=== PATIENT | female | born 1985 ===

== ENCOUNTER 2020-04-28 13:22 | Outpatient (REF) | payer OTHER, SELFPAY | END 2020-04-28 13:23 | disposition home or self-care (01) | LOC: HO.HMGCLDS 13:22 | PROVIDERS: PCP Internal Medicine; Visit Provider Internal Medicine | DX: Z20.828 Contact with and (suspected) exposure to other viral communicable diseases (principal) | CPT/HCPCS: 36415; 87635 ==

== ENCOUNTER 2022-03-20 12:23 | Outpatient (REF) | payer OTHER, SELFPAY ==
[2022-03-20 14:13] LABS: MANUAL DIFF FLAG NO
[2022-03-20 14:28] LABS: Alanine Aminotransferase 17 U/L (0-31); Albumin Level 4.1 g/dL (3.5-5.0); Alkaline Phosphatase 66 U/L (39-117); Anion Gap 13 (12-20); Aspartate Amino Transferase 21 U/L (5-31); Bilirubin Total 0.9 mg/dL (0.0-1.0); Blood Urea Nitrogen 13 mg/dL (9-16); Calcium 9.3 mg/dL (8.4-10.2); Carbon Dioxide 26 mmol/L (22-29); Chloride 103 mmol/L (96-108); Cholesterol 182 mg/dL; Estimated Glomerular Filt Rate > 60; Glucose Fasting 92 mg/dL (60-99); HDL Cholesterol 44 mg/dL; LDL Cholesterol Calculated 118 mg/dl; Potassium 4.1 mmol/L (3.3-5.1); Sodium 138 mmol/L (135-145); Total Protein 7.4 g/dL (6.5-8.0); Triglycerides 103 mg/dL
[2022-03-20 14:34] LABS: Basophils Percent Auto 0.5 % (0-2); Eosinophils Absolute Auto 0.2 X10*3/uL (0.0-0.4); Eosinophils Percent Auto 3.6 % (0-4); Hemoglobin 11.7 g/dl (12.0-16.0); Imm Gran Abs Auto 0.02 X10*3/uL (0.00-0.03); Imm Gran Pct Auto 0.3 % (0.0-0.4); Lymphocytes Absolute Auto 2.1 X10*3/uL (1.2-4.9); Lymphocytes Percent Auto 34.2 % (20-40); Mean Corpuscular HGB Conc 32.5 g/dl (31.0-35.0); Mean Corpuscular Hemoglobin 27.6 pg (27.0-33.0); Mean Corpuscular Volume 84.9 fL (80.0-98.0); Mean Platelet Volume 11.4 fL (9.4-12.3); Monocytes Absolute Auto 0.5 X10*3/uL (0.1-1.2); Monocytes Percent Auto 7.5 % (2-11); Neutrophils Absolute Auto 3.3 x10*3/uL (2.0-8.3); Neutrophils Percent Auto 53.9 % (45-73); Platelet Count 271 X10*3/uL (160-400); Red Blood Count 4.24 X10*6/uL (4.20-5.50); Red Cell Distribution Width 13.4 % (11.0-16.0); White Blood Count 6.1 X10*3/uL (4.8-10.8)
[2022-03-20 14:49] LABS: TSH reflex Free T4 0.79 uIU/mL (0.32-4.0)
[2022-03-22 03:31] LABS: ~Hepatitis B Surface Antibody REACTIVE (Nonreactive)
[2022-03-22 21:21] LABS: Rubella IgG Antibody 7.12 Index
[2022-03-24 11:56] LABS: Tetanus Antitoxiod Antibody 1.27 IU/mL
== END 2022-03-20 12:24 | disposition home or self-care (01) ==
LOC: HO.HMGCLDS 12:23
PROVIDERS: PCP Internal Medicine; Visit Provider Internal Medicine
DX: Z00.01 Encounter for general adult medical examination with abnormal findings (principal); E66.3 Overweight; R03.0 Elevated blood-pressure reading, without diagnosis of hypertension; Z28.39 Other underimmunization status
CPT/HCPCS: 36415; 80053; 80061; 84443; 85025; 86706; 86735; 86762; 86765; 86774; 86787

== ENCOUNTER 2022-03-23 10:32 | Outpatient (REF) | payer OTHER, SELFPAY ==
[2022-03-26 16:25] LABS: TS Negative Control Passed; TS Panel A 0; TS Panel B 0; TS Positive Control Passed; TSpotTB Negative (Negative)
== END 2022-03-23 10:33 | disposition home or self-care (01) ==
LOC: HO.HMGCLDS 10:32
PROVIDERS: PCP Internal Medicine; Visit Provider Internal Medicine
DX: Z11.1 Encounter for screening for respiratory tuberculosis (principal); Z28.39 Other underimmunization status
CPT/HCPCS: 36415; 86481

== ENCOUNTER 2024-04-04 13:44 | Outpatient (AMB) | payer OTHER, SELFPAY ==
--- NOTE | 2024-04-04 13:45 | MHC.PC.OV ---
Vital Signs 04/04/24 13:46 Height 5 ft 5 in Weight 179 lb BMI 29.8 BP 164/110 H Blood Pressure Location Rt brachial Position Sitting Pulse 85 Pulse Source Pulse Oximeter Pulse Oximetry (%) 99 Oxygen Delivery Method Room Air Intake Visit Reasons: PE Allergies No Known Allergies [No Known Allergies*] Allergy (Verified 04/04/24 13:46) Medication List - Last Reconciled 04/04/24 by Ashleigh Love MD bupropion HCl XL 150 mg PO QAM sertraline 50 mg PO DAILY Tobacco use date assessed: 04/04/24 Dental Screening Dental Screen Date: 04/04/24 Did you have a dental visit in the last 12 months?: Yes Did you have a dental problem in the last 6 months where you did not have access to dental care?: No Was dental information given to patient?: Patient has dentist HPI PE HPI Details Patient was 39-year-old female came in for physical exam Last time seen was 20:22 Patient had twins in 2020 During she had hypertension and was taking medication, later on her blood pressure become normal of the medication Until recently she noticed that she is having some chest discomfort at times Patient also have anxiety and is seeing psychiatrist and is taking medication EKG done today shows normal sinus rhythm no acute finding Blood pressure is elevated I am starting her on atenolol 25 mg once a day, patient have a monitor at home She will start logging her blood pressure and return in 2 weeks for follow-up appointment Labs are needed as well, she is complaining of feeling tired Her periods are regular, however patient need a referral to OBGYN and mammogram which I have placed for her. BMI is elevated need to lose weight Follow-up 2 weeks [facility] Social History Housing: House Patient Tobacco Use Status: Never used Tobacco e-Cigarette/Vaping Use: Never Used service: No Current occupational status: employed Cognitive needs: No Hearing needs: No Vision needs: No Questionnaire PHQ-9 Over the last 2 weeks, how often have you been bothered by any of the following problems? 1. Little interest or pleasure in doing things: not at all 2. Feeling down, depressed, or hopeless: not at all 3. Trouble falling or staying asleep, or sleeping too much: not at all 4. Feeling tired or having little energy: several days 5. Poor appetite or overeating: not at all 6. Feeling bad about yourself - or that you are a failure or have let yourself or your family down: not at all 7. Trouble concentrating on things, such as reading the newspaper or watching television: not at all 8. Moving or speaking so slowly that other people could have noticed. Or the opposite - being so fidgety or restless that you have been moving around a lot more than usual: not at all 9. Thoughts that you would be better off or of hurting yourself in some way: not at all Total score: 1 Depression Screening Interpretation: Negative Depression Screening Done: Yes 52122 - PHQ-9 Billing: Yes Source: Developed by Drs. Edy Otto, Erin Bryant, Tramaine Seals and colleagues, with an educational peggy from [employer]. Thrive Questionnaire Date Thrive assessed: 04/04/24 I am a: Patient What is your living situation today?: I have a steady place to live Within the past 12 months, did the food you bought not last and you didn't have the money to get more?: Never true Within the past 12 months, did you worry whether your food would run out before you got money to buy more?: Never true Do you have trouble paying for medicines?: No Do you have trouble getting transportation to medical appointments?: No Do you have trouble paying your heating and electricity bill?: No Do you have trouble taking care of your child, family member or friend?: No Do you have trouble with day-to-day activities such as bathing, preparing meals, shopping, managing finances, etc.?: No Are you currently unemployed and looking for a job?: No Are you interested in more education?: Yes Please select the resources that you would like help with: None Currently or been in a relationship where the following occur: I choose not to answer THRIVE Score: 0 AUDIT C Alcohol Use Questionnaire (AUDIT-C) 1. How often do you have a drink containing alcohol?: Monthly or less 2. How many drinks containing alcohol do you have on a typical day when you are drinking?: 1 or 2 3. How often do you have six or more drinks on one occasion?: Never Total Score: 1 Score Reviewed/Action Taken: Yes CADY-7 AMB Questionnaire CADY-7 Date CDAY - 7 assessed: 04/04/24 Feeling nervous, anxious, or on edge: 1 = Several days Not being able to stop or control worryin = Several days Worrying too much about different things: 1 = Several days Trouble relaxin = Several days Being so restless that it is hard to sit still: 1 = Several days Becoming easily annoyed or irritable: 1 = Several days Feeling afraid as if something awful might happen: 0 = Not at all Total CADY-7 score (0-4 normal; 5-9 mild; 10-14 moderate; 15-21 severe): 6 Source: Developed by Drs. Edy Otto, Erin Bryant, Tramaine Seals and colleagues, with an educational peggy from [employer]. Review of Systems Const Denies chills, Denies fever(s) and Denies headache(s) Eyes Denies blurry vision ENT Denies headache(s), Denies nasal discharge, Denies nasal obstruction, Denies odynophagia and Denies sinus pain Card Denies chest pain at rest and Denies chest pain with activity Resp Denies cough and Denies hemoptysis GI Denies diarrhea, Denies odynophagia, Denies vomiting and Denies hematemesis Reports as per HPI Musc Denies abnormal gait Skin/Breast Reports as per HPI Neuro Denies Neuro-related abnormal movements, Denies Abnormal speech present, Denies abnormal gait, Denies headache(s) and Denies Sensory deficit (Neuro) Psych Denies mood swings and Denies paranoia Endo Reports as per HPI Fabian/Lymph Reports as per HPI Aller/Immun Reports as per HPI Physical exam (Primary Care) Vital Signs: Last Vital Signs Pulse 85 04/04/24 13:46 BP 164/110 H 04/04/24 13:46 Pulse Ox 99 04/04/24 13:46 Oxygen Delivery Method Room Air 04/04/24 13:46 BMI result Body Mass Index 29.8 Tobacco/Smoking Status: Tobacco use Status Tobacco use date assessed 04/04/24 04/04/24 13:53 Patient Tobacco Use Status Never used Tobacco 04/04/24 13:53 e-Cigarette/Vaping Use Never Used 04/04/24 13:53 PHQ-9: PHQ-9 Score PHQ-9: Total score 1 04/04/24 13:55 Depression Screening Interpretation: Negative Thrive Assessment: Date of Thrive Assessment Date Thrive assessed 04/04/24 04/04/24 13:55 Currently or been in a relationship where the following occur: I choose not to answer Const General: cooperative, comfortable and no acute distress Orientation/consciousness: patient oriented x3 HENMT Head: Yes normocephalic and Yes atraumatic Eyes General: appearance normal, both eyes and all related structures Pupils: Equal, round and reactive pupils present EOM: EOMs intact bilaterally Neck Neck: Yes supple and No lymphadenopathy Thyroid: Thyroid normal Lymphatic: no lymphadenopathy noted Resp Effort & Inspection: normal respiratory effort and able to speak in complete sentences Auscultation: clear to auscultation bilaterally Cardio Heart sounds: S1 normal heart sound present and S2 normal heart sound present GI Palpation (GI): Soft to palpation and nontender Auscultation: normal bowel sounds General: Yes no CVA tenderness Back/Spine/Pelvis Back: no CVA tenderness Skin General skin exam: elasticity normal and turgor normal Neuro General: patient oriented x3 and gait normal Cranial nerves: Yes Equal, round and reactive pupils present Speech: No Abnormal speech present Sensory Exam: No Sensory deficit (Neuro) Coordination: tandem gait normal and Romberg test negative Extrem General: Yes normal exam except as noted and No edema Office Procedures EKG [id number], Complete Assessment and Plan Assessment & Plan (1) Encounter for general adult medical examination with abnormal findings: Code(s): Z00.01 - Encounter for general adult medical examination with abnormal findings (2) Chest discomfort: Code(s): R07.89 - Other chest pain (3) Elevated blood pressure reading: Code(s): R03.0 - Elevated blood-pressure reading, without diagnosis of hypertension (4) Tired: Code(s): R53.83 - Other fatigue (5) Depression, major, recurrent, mild: Code(s): F33.0 - Major depressive disorder, recurrent, mild (6) Anxiety, generalized: Code(s): F41.1 - Generalized anxiety disorder Plan Patient was 39-year-old female came in for physical exam Last time seen was 20:22 Patient had twins in 2020 During she had hypertension and was taking medication, later on her blood pressure become normal of the medication Until recently she noticed that she is having some chest discomfort at times Patient also have anxiety and is seeing psychiatrist and is taking medication EKG done today shows normal sinus rhythm no acute finding Blood pressure is elevated I am starting her on atenolol 25 mg once a day, patient have a monitor at home She will start logging her blood pressure and return in 2 weeks for follow-up appointment Labs are needed as well, she is complaining of feeling tired Her periods are regular, however patient need a referral to OBGYN and mammogram which I have placed for her. BMI is elevated need to lose weight Follow-up 2 week Orders: Orders Comprehensive [place]. Panel Fast Today F33.0 - Major depressive disorder, recurrent, mild, F41.1 - Generalized anxiety disorder, R03.0 - Elevated blood-pressure reading, without diagnosis of hypertension, R53.83 - Other fatigue, Z00.01 - Encounter for general adult medical examination with abnormal findings Lipid Panel Today F33.0 - Major depressive disorder, recurrent, mild, F41.1 - Generalized anxiety disorder, R03.0 - Elevated blood-pressure reading, without diagnosis of hypertension, R53.83 - Other fatigue, Z00.01 - Encounter for general adult medical examination with abnormal findings Vitamin B12 Today F33.0 - Major depressive disorder, recurrent, mild, F41.1 - Generalized anxiety disorder, R03.0 - Elevated blood-pressure reading, without diagnosis of hypertension, R53.83 - Other fatigue, Z00.01 - Encounter for general adult medical examination with abnormal findings UA CC w/rflx Micro + Cult Today F33.0 - Major depressive disorder, recurrent, mild, F41.1 - Generalized anxiety disorder, R03.0 - Elevated blood-pressure reading, without diagnosis of hypertension, R53.83 - Other fatigue, Z00.01 - Encounter for general adult medical examination with abnormal findings Magnesium Today F33.0 - Major depressive disorder, recurrent, mild, F41.1 - Generalized anxiety disorder, R03.0 - Elevated blood-pressure reading, without diagnosis of hypertension, R53.83 - Other fatigue, Z00.01 - Encounter for general adult medical examination with abnormal findings AMB EKG-In Office Today R07.89 - Other chest pain Complete Blood Count Auto Diff Today F33.0 - Major depressive disorder, recurrent, mild, F41.1 - Generalized anxiety disorder, R03.0 - Elevated blood-pressure reading, without diagnosis of hypertension, R53.83 - Other fatigue, Z00.01 - Encounter for general adult medical examination with abnormal findings Vitamin D 25-OH (D2 and D3) Today F33.0 - Major depressive disorder, recurrent, mild, F41.1 - Generalized anxiety disorder, R03.0 - Elevated blood-pressure reading, without diagnosis of hypertension, R53.83 - Other fatigue, Z00.01 - Encounter for general adult medical examination with abnormal findings TSH reflex Free T4 Today F33.0 - Major depressive disorder, recurrent, mild, F41.1 - Generalized anxiety disorder, R03.0 - Elevated blood-pressure reading, without diagnosis of hypertension, R53.83 - Other fatigue, Z00.01 - Encounter for general adult medical examination with abnormal findings Ferritin Today F33.0 - Major depressive disorder, recurrent, mild, F41.1 - Generalized anxiety disorder, R03.0 - Elevated blood-pressure reading, without diagnosis of hypertension, R53.83 - Other fatigue, Z00.01 - Encounter for general adult medical examination with abnormal findings Folate Today F33.0 - Major depressive disorder, recurrent, mild, F41.1 - Generalized anxiety disorder, R03.0 - Elevated blood-pressure reading, without diagnosis of hypertension, R53.83 - Other fatigue, Z00.01 - Encounter for general adult medical examination with abnormal findings MM tomosynthesis screening BI Today Z12.31 - Encounter for screening mammogram for malignant neoplasm of breast Referrals [employer] Referral Z01.419 - Encounter for gynecological examination (general) (routine) without abnormal findings Medications: New atenolol 25 mg PO DAILY 30 tabs 0RF Coding Level of Care Code Est Pt Level 4 (99541) Est Pt Prev Care 40-64y(93662) Diagnoses Encounter for general adult medical examination with abnormal findings Z00.01 Chest discomfort R07.89 Elevated blood pressure reading R03.0 Tired R53.83 Depression, major, recurrent, mild F33.0 Anxiety, generalized F41.1 CPT Codes EKG - CPT: 71263-[id number], Complete ([id number])
[2024-04-04 13:46] VITALS: BP 164/110; PULSE 85; O2SAT 99; BMI 29.8
== END 2024-04-04 14:23 | disposition home or self-care (01) ==
PROVIDERS: PCP Internal Medicine; Visit Provider Internal Medicine
DX: Z00.00 Encounter for general adult medical examination without abnormal findings (principal); F33.0 Major depressive disorder, recurrent, mild; R07.89 Other chest pain; R03.0 Elevated blood-pressure reading, without diagnosis of hypertension; R53.83 Other fatigue; F41.1 Generalized anxiety disorder
CPT/HCPCS: 93000; 99214; 99396

== ENCOUNTER 2024-04-06 09:47 | Outpatient (REF) | payer OTHER, SELFPAY ==
[2024-04-06 13:37] LABS: Appearance Urine Turbid; Color Urine Dark Yellow; Glucose Urine UA Negative (Negative); Leukocyte Esterase Urine Negative (Negative); Nitrite Urine Negative (Negative); PH 5.5 (5.0-9.0); Specific Gravity - Urine >= 1.030 (1.005-1.025); UMIC TRIGGER UACC YES; Urine Blood Small (1+) (Negative); Urine Ketones Trace mg/dL (Negative); Urine Protein Trace mg/dL (Neg-Trace)
[2024-04-06 13:44] LABS: Bacteria Urine None Seen (None Seen); Hyaline Casts Urine 0-2 /LPF (0-2); WBC Urine 0-5 /HPF (0-5)
[2024-04-06 13:59] LABS: MANUAL DIFF FLAG NO
[2024-04-06 14:01] LABS: Basophils Absolute Auto 0.1 X10*3/uL (0.0-0.2); Basophils Percent Auto 1.1 % (0-2); Eosinophils Absolute Auto 0.1 X10*3/uL (0.0-0.4); Eosinophils Percent Auto 1.9 % (0-4); Hematocrit 38.3 % (37.0-47.0); Hemoglobin 12.3 g/dl (12.0-16.0); Imm Gran Abs Auto 0.01 X10*3/uL (0.00-0.03); Imm Gran Pct Auto 0.2 % (0.0-0.4); Lymphocytes Absolute Auto 2.2 X10*3/uL (1.2-4.9); Lymphocytes Percent Auto 41.4 % (20-40); Mean Corpuscular HGB Conc 32.1 g/dl (31.0-35.0); Mean Corpuscular Hemoglobin 27.9 pg (27.0-33.0); Mean Corpuscular Volume 86.8 fL (80.0-98.0); Mean Platelet Volume 11.3 fL (9.4-12.3); Monocytes Absolute Auto 0.4 X10*3/uL (0.1-1.2); Monocytes Percent Auto 7.8 % (2-11); Neutrophils Absolute Auto 2.5 x10*3/uL (2.0-8.3); Neutrophils Percent Auto 47.6 % (45-73); Platelet Count 275 X10*3/uL (160-400); Red Blood Count 4.41 X10*6/uL (4.20-5.50); Red Cell Distribution Width 13.1 % (11.0-16.0); White Blood Count 5.3 X10*3/uL (4.8-10.8)
[2024-04-06 14:23] LABS: Alanine Aminotransferase 16 U/L (0-31); Albumin Level 4.1 g/dL (3.5-5.0); Alkaline Phosphatase 54 U/L (39-117); Anion Gap 12 (12-20); Aspartate Amino Transferase 18 U/L (5-31); Blood Urea Nitrogen 13 mg/dL (9-16); Calcium 9.4 mg/dL (8.4-10.2); Carbon Dioxide 26 mmol/L (22-29); Chloride 107 mmol/L (96-108); Cholesterol 162 mg/dL (<200); Estimated Glomerular Filt Rate > 60; Glucose Fasting 91 mg/dL (60-99); HDL Cholesterol 38 mg/dL (>40); LDL Cholesterol Calculated 102 mg/dL (<100); Magnesium 2.2 mg/dL (1.6-2.6); Potassium 3.9 mmol/L (3.3-5.1); Sodium 141 mmol/L (135-145); Total Protein 7.6 g/dL (6.5-8.0); Triglycerides 113 mg/dL (<150)
[2024-04-06 14:43] LABS: Ferritin 96 ng/mL (10-250); TSH reflex Free T4 0.98 uIU/mL (0.32-4.0)
[2024-04-06 14:47] LABS: Folate 10.2 ng/mL (> or = 4.0); Vitamin B12 536 pg/mL (200-900)
[2024-04-11 17:38] LABS: Vitamin D 25-OH, D2 <4 ng/mL; Vitamin D 25-OH, D3 20 ng/mL; Vitamin D 25-OH, Total 20 ng/mL (30-100)
== END 2024-04-06 09:48 | disposition home or self-care (01) ==
LOC: HO.HMGCLDS 09:47
PROVIDERS: PCP Internal Medicine; Visit Provider Internal Medicine
DX: Z00.01 Encounter for general adult medical examination with abnormal findings (principal); F33.0 Major depressive disorder, recurrent, mild; F41.1 Generalized anxiety disorder; R03.0 Elevated blood-pressure reading, without diagnosis of hypertension
CPT/HCPCS: 36415; 80053; 80061; 81001; 82306; 82607; 82728; 82746; 83735; 84443; 85025

== ENCOUNTER 2024-04-20 13:37 | Outpatient (AMB) | payer OTHER, SELFPAY ==
[2024-04-20 13:51] VITALS: BP 138/86; PULSE 82; O2SAT 100; BMI 30.3
--- NOTE | 2024-04-20 13:51 | A.OFFPC_ITS ---
Vital Signs 04/20/24 13:51 Height 5 ft 5 in Weight 182 lb 6 oz BMI 30.3 BP 138/86 Blood Pressure Location Lt brachial Position Sitting Pulse 82 Pulse Source Pulse Oximeter Pulse Oximetry (%) 100 Oxygen Delivery Method Room Air Intake Visit Reasons: Office visit Allergies No Known Allergies [No Known Allergies*] Allergy (Verified 04/20/24 13:58) Medication List - Last Reconciled 04/20/24 by Ashleigh Love MD atenolol 25 mg PO DAILY bupropion HCl XL 150 mg PO QAM Tobacco use date assessed: 04/20/24 Dental Screening Dental Screen Date: 04/20/24 Did you have a dental visit in the last 12 months?: Yes Did you have a dental problem in the last 6 months where you did not have access to dental care?: No Was dental information given to patient?: Patient has dentist HPI Office visit HPI Details Patient is a 39-year-old female came in today for her follow-up appointment on blood pressure Blood pressure is better than before however it is still running above 140 at home I am increasing the dose of atenolol to 50 mg She is to continue monitoring her blood pressure at home She is seeing a therapist and a psychiatrist and is taking Wellbutrin 150 through them Continued to feel stressed out, she will talk to psychiatrist if they can increase the dose of Wellbutrin Labs done reviewed with the patient Other than low vitamin-D labs were reasonable Report discussed with the patient She will return in six-month for blood pressure follow-up Labs are needed before visit, order is in, patient was notified [facility] Social History Housing: House Patient Tobacco Use Status: Never used Tobacco e-Cigarette/Vaping Use: Never Used service: No Current occupational status: employed Cognitive needs: No Hearing needs: No Vision needs: No Questionnaire Thrive Questionnaire Date Thrive assessed: 04/04/24 I am a: Patient What is your living situation today?: I have a steady place to live Within the past 12 months, did the food you bought not last and you didn't have the money to get more?: Never true Within the past 12 months, did you worry whether your food would run out before you got money to buy more?: Never true Do you have trouble paying for medicines?: No Do you have trouble getting transportation to medical appointments?: No Do you have trouble paying your heating and electricity bill?: No Do you have trouble taking care of your child, family member or friend?: No Do you have trouble with day-to-day activities such as bathing, preparing meals, shopping, managing finances, etc.?: No Are you currently unemployed and looking for a job?: No Are you interested in more education?: Yes Please select the resources that you would like help with: None Currently or been in a relationship where the following occur: I choose not to answer THRIVE Score: 0 CADY-7 AMB Questionnaire CADY-7 Date CADY - 7 assessed: 04/04/24 Source: Developed by Drs. Edy Otto, Erin Bryant, Tramaine Seals and colleagues, with an educational peggy from [employer]. Review of Systems Const Denies chills and Denies fever(s) ENT Denies epistaxis and Denies nasal discharge Card Denies chest pain Resp Denies chest congestion, Denies cough and Denies hemoptysis GI Denies diarrhea and Denies nausea Skin/Breast Denies rash Neuro Reports no additional complaints Psych Reports no additional complaints Endo Reports no additional complaints Physical exam (Primary Care) Vital Signs: Last Vital Signs Pulse 82 04/20/24 13:51 BP 138/86 04/20/24 13:51 Pulse Ox 100 04/20/24 13:51 Oxygen Delivery Method Room Air 04/20/24 13:51 BMI result Body Mass Index 30.3 Tobacco/Smoking Status: Tobacco use Status Tobacco use date assessed 04/20/24 04/20/24 13:58 Patient Tobacco Use Status Never used Tobacco 04/20/24 13:53 e-Cigarette/Vaping Use Never Used 04/20/24 13:53 Thrive Assessment: Date of Thrive Assessment Date Thrive assessed 04/04/24 04/20/24 13:53 Currently or been in a relationship where the following occur: I choose not to answer Const General: cooperative, comfortable and no acute distress Orientation/consciousness: patient oriented x3 HENMT Head: Yes normocephalic Eyes General: appearance normal, both eyes and all related structures Neck Neck: Yes supple Resp Effort & Inspection: normal respiratory effort, no cough and no stridor Cardio Rhythm: regular rhythm Heart sounds: S1 normal heart sound present and S2 normal heart sound present Skin General skin exam: turgor normal Neuro General: patient oriented x3, tone normal and moves all extremities Extrem Right lower extremity: no edema Left lower extremity: no edema Assessment and Plan Assessment & Plan (1) Hypertension, essential: Code(s): I10 - Essential (primary) hypertension (2) Depression, major, recurrent, mild: Code(s): F33.0 - Major depressive disorder, recurrent, mild (3) Vitamin D deficiency: Code(s): E55.9 - Vitamin D deficiency, unspecified Plan Patient is a 39-year-old female came in today for her follow-up appointment on blood pressure Blood pressure is better than before however it is still running above 140 at home I am increasing the dose of atenolol to 50 mg She is to continue monitoring her blood pressure at home She is seeing a therapist and a psychiatrist and is taking Wellbutrin 150 through them Continued to feel stressed out, she will talk to psychiatrist if they can increase the dose of Wellbutrin Labs done reviewed with the patient Other than low vitamin-D labs were reasonable Report discussed with the patient She will return in six-month for blood pressure follow-up Labs are needed before visit, order is in, patient was notified Medications: New cholecalciferol (vitamin D3) 25 mcg PO DAILY 90 days 90 caps 1RF cholecalciferol (vitamin D3) 25 mcg PO DAILY 90 days 90 caps 1RF Changed From atenolol 25 mg PO DAILY 30 tabs 0RF To atenolol 50 mg PO DAILY 90 tabs 0RF Coding Level of Care Code Est Pt Level 3 (27488) Complex EM visit Add On G2211 Diagnoses Hypertension, essential I10 Depression, major, recurrent, mild F33.0 Vitamin D deficiency E55.9
== END 2024-04-20 14:23 | disposition home or self-care (01) ==
PROVIDERS: PCP Internal Medicine; Visit Provider Internal Medicine
DX: I10 Essential (primary) hypertension (principal); F33.0 Major depressive disorder, recurrent, mild; E55.9 Vitamin D deficiency, unspecified

== ENCOUNTER → 2024-04-20 13:37 | Outpatient (BNVA) | payer OTHER, SELFPAY | PROVIDERS: PCP Internal Medicine; Visit Provider Internal Medicine | DX: I10 Essential (primary) hypertension (principal); F33.0 Major depressive disorder, recurrent, mild; E55.9 Vitamin D deficiency, unspecified | CPT/HCPCS: 99212 ==

== ENCOUNTER 2024-07-05 09:26 | Outpatient (AMB) | payer OTHER, SELFPAY ==
[2024-07-05 09:30] VITALS: BP 122/74; BMI 30.4
--- NOTE | 2024-07-05 09:30 | A.OFFVIS_ITS ---
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 Doing well with concerns: Mood changes. Regular monthly menses x3-4d. Currently is sexually active. 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 She denies vaginal itching and irritation. STI screening offered; she accepts, declines blood work. She tries to eat healthy and stays active with exercise. Denies family history of breast, ovarian or colon cancer. Last pap smear ? 2020, negative. Hx. of colposcopy years ago. Hx. of myomectomy, tubal scarring. Mammogram: Never had one completed. 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 Cognitive needs: No Hearing needs: No Vision needs: No Female Reproductive History Menstrual Duration of menses: 3-5 days Date of last menstrual period: 06/15/24 control method: none and other (Infertility) Total pregnancies: 1 Full term: 2 Number of Living Children: 2 Multiple births: 1 Review of Systems Const All systems reviewed & are unremarkable except as noted in HPI and below Reports as per HPI Eyes Reports no additional complaints ENT Reports no additional complaints Card Reports no additional complaints Resp Reports no additional complaints GI Reports as per HPI and Reports no additional complaints Reports as per HPI Musc Reports no additional complaints Skin/Breast Reports as per HPI Neuro Reports no additional complaints Psych Reports no additional complaints Endo Reports no additional complaints Fabian/Lymph Reports no additional complaints Aller/Immun Reports no additional complaints Physical Exam Vital Signs: Last Vital Signs BP 122/74 07/05/24 09:30 BMI result Body Mass Index 30.4 Const General: cooperative, healthy appearing, no acute distress, well developed and a lert Orientation/consciousness: patient oriented x3 HEENT Head: Yes normal to inspection Eyes General: appearance normal, both eyes and all related structures Neck Neck: Yes normal visual inspection Thyroid: Thyroid normal Chest Chest palpation & inspection: normal inspection of the chest and other (no puckering, dimpling, peau de orange, retraction, discharge, masses) Breast/axilla inspection: normal inspection of the breasts Breast/axilla palpation: normal palpation of the breasts Resp Effort & Inspection: normal respiratory effort GI Inspection: Yes normal to inspection and Yes scar Palpation (GI): Soft to palpation Rectal Exam - Female: deferred General: Yes bladder normal to palpation External Female Exam: normal external appearance and normal appearance of the urethra Speculum Exam - Vagina: normal appearance of the vagina, normal palpation and normal vaginal discharge Speculum Exam - Cervix: normal appearance of the cervix and normal palpation Bimanual exam- vagina & uterus: normal bimanual exam, normal palpation, uterine size normal, bladder normal to palpation, normal palpation and non-tender Bimanual Exam- Adnexa, other: no masses Skin General skin exam: no rashes or lesions noted Rashes: no rashes Neuro General: patient oriented x3 Cognition (Neuro): normal cognition Extrem General: Yes normal to inspection Psych Attitude: cooperative Thought process: Normal thought process present Assessment & Plan Assessment & Plan (1) Encounter for well woman exam with routine gynecological exam: Code(s): Z01.419 - Encounter for gynecological examination (general) (routine) without abnormal findings Category: Medical Plan Discussed: Current recommendations for pap smears per ASCCP guidelines. Breast awareness and periodic breast exams. Mammogram yearly-order placed. Perimenopause changes. Monitor menstrual cycles, report any unscheduled bleeding, bleeding episodes <24 days apart or heavy/prolonged menstrual bleeding. Call the office for a follow up for any concerns. Maintain a healthy lifestyle including a well balanced diet and routine exercise. Patient verbalizes understanding and agrees to the plan of care. She was given opportunity to ask questions and all questions were answered to the best of my ability. RTO in one year for annual urogynaecologist examination. This note is constructed using voice recognition software. While every effort has been made to ensure accuracy, tie mill operator errors may have been included. Orders: Orders MM tomosynthesis screening BI Today Z12.31 - Encounter for screening mammogram for malignant neoplasm of breast Bacterial Vaginosis Panel Today Z20.2 - Contact with and (suspected) exposure to infections with a predominantly sexual mode of transmission CT NG by PCR Today Z20.2 - Contact with and (suspected) exposure to infections with a predominantly sexual mode of transmission HPV High risk Today Z01.419 - Encounter for gynecological examination (general) (routine) without abnormal findings Pap Smear Today Z01.419 - Encounter for gynecological examination (general) (routine) without abnormal findings Coding Level of Care Code New Pt Prev Care 40-64y(56506) Diagnoses Encounter for well woman exam with routine gynecological exam Z01.419
== END 2024-07-05 10:22 | disposition home or self-care (01) ==
LOC: HO.HWS 09:26
PROVIDERS: PCP Internal Medicine; Visit Provider Advanced Practice Midwife
DX: Z01.419 Encounter for gynecological examination (general) (routine) without abnormal findings (principal)
CPT/HCPCS: 99386

== ENCOUNTER 2024-07-05 09:26 | Outpatient (REF) | payer OTHER, SELFPAY ==
[2024-07-06 15:06] LABS: CT PCR NOT DETECTED (Not Detect.); NG PCR NOT DETECTED (Not Detect.)
[2024-07-06 17:23] LABS: Bacterial Vaginosis PCR NEGATIVE (Negative); Candida Group PCR NOT DETECTED (Not Detect); Candida glab krusei PCR NOT DETECTED (Not Detect); Trichomonas vaginalis PCR NOT DETECTED (Not Detect)
== END 2024-07-05 09:27 | disposition home or self-care (01) ==
LOC: HO.LAB 09:26
PROVIDERS: PCP Internal Medicine; Visit Provider Advanced Practice Midwife
DX: Z01.419 Encounter for gynecological examination (general) (routine) without abnormal findings (principal); Z20.2 Contact with and (suspected) exposure to infections with a predominantly sexual mode of transmission
CPT/HCPCS: 0352U; 87491; 87591; 99386; 99459

== ENCOUNTER 2024-07-05 10:18 | Outpatient (REF) | payer OTHER, SELFPAY ==
[2024-07-06 09:16] LABS: HPV 16,18/45 See PAP report
== END 2024-07-05 10:19 | disposition home or self-care (01) ==
LOC: HO.LNP 10:18
PROVIDERS: Visit Provider Advanced Practice Midwife
DX: Z01.419 Encounter for gynecological examination (general) (routine) without abnormal findings (principal)
CPT/HCPCS: 87624; 88175

== ENCOUNTER 2024-08-15 10:06 | Outpatient (REF) | payer OTHER, SELFPAY | END 2024-08-15 10:07 | disposition home or self-care (01) | LOC: HO.MAMMO 10:06 | PROVIDERS: PCP Internal Medicine; Visit Provider Advanced Practice Midwife | DX: Z12.31 Encounter for screening mammogram for malignant neoplasm of breast (principal) | CPT/HCPCS: 77063; 77067 ==

== ENCOUNTER → 2024-08-15 10:15 | Outpatient (BNV) | payer OTHER, SELFPAY | PROVIDERS: PCP Internal Medicine; Visit Provider Internal Medicine | DX: Z12.31 Encounter for screening mammogram for malignant neoplasm of breast (principal) | CPT/HCPCS: 77063; 77067 ==